=== PATIENT | female | born 1990 | race Caucasian/White ===

== ENCOUNTER 2019-03-19 17:07 | Emergency (ER) | payer OTHER ==
[~2019-03-19] VITALS: Ht 160 cm; Wt 54.4 kg
[2019-03-19] MEDS ORDERED: MIRENA1 EACH INTRAUTERI (17:28)
[2019-03-19 17:36] LABS: URINE BLOOD TRACE (Negative); URINE CLARITY CLOUDY; URINE COLOR YELLOW; URINE GLUCOSE-RANDOM NEGATIVE (Negative); URINE KETONES NEGATIVE (Negative); URINE LEUKOCYTES-REFLEX TRACE (Negative); URINE PROTEIN NEGATIVE (Negative); URINE SPECIFIC GRAVITY 1.025 (1.005-1.030); URINE UROBILINOGEN 0.2 E.U./dl (0.2-1.0)
[2019-03-19 17:40] LABS: ICTOTEST (BILI CONFIRMATORY) Negative (Negative); URINE BILIRUBIN 1+ (Negative); URINE NITRITE-REFLEX POSITIVE (Negative)
[2019-03-19 17:49] LABS: CASTS None Seen /LPF (None Seen); MUCUS 4-6 Moderate strn/LPF (None Seen); SQUAMOUS >10 Many /LPF (0-3)
[2019-03-19 17:50] LABS: BACTERIA-REFLEX >30 Many /HPF (None Seen); CALCIUM OXALATE 4-10 Moderate /LPF (None Seen); URINE RBC 0-2 Rare /HPF (0-2); URINE WBC-REFLEX 6-15 Few /HPF (0-5)
[2019-03-19 17:54] LABS: ABSOLUTE LYMPHOCYTES 1.3 thou/uL (0.8-5.3); ABSOLUTE MONOCYTES 0.5 thou/uL (0.0-1.2); ABSOLUTE NEUTROPHILS 4.6 thou/uL (1.6-8.1); BASOPHILS 0.3 %; EOSINOPHILS 0.7 %; HEMATOCRIT 41.9 % (37.0-47.0); HEMOGLOBIN 14.6 gm/dL (12.0-15.0); LYMPHOCYTES 20.1 %; MCH 31.6 pg (26.0-34.0); MCHC 34.8 g/dL (28.0-37.0); MCV 90.9 fL (80.0-100.0); MONOCYTES 7.3 %; MPV 6.7 fl. (7.2-11.1); NUCLEATED RBCS 0 /100WBC; PLATELET COUNT* 258 thou/uL (150-400); POLYS 71.6 %; RBC 4.62 mil/uL (4.20-5.00); RDW-CV 13.1 % (10.5-14.5); WBC 6.5 thou/uL (4.0-11.0)
[2019-03-19] MEDS ORDERED: MACROBID 100 M100 M2 PO (18:34)
[2019-03-19 18:52] VITALS: BP 133/74
== END 2019-03-19 18:55 | disposition home or self-care (01) ==
LOC: M.ERS 17:07
PROVIDERS: Nurse Practitioner Psychiatric/Mental Health
DX: N39.0 Urinary tract infection, site not specified (principal); F12.10 Cannabis abuse, uncomplicated; R19.7 Diarrhea, unspecified; R11.2 Nausea with vomiting, unspecified; Z88.0 Allergy status to penicillin; Z20.2 Contact with and (suspected) exposure to infections with a predominantly sexual mode of transmission; Z87.42 Personal history of other diseases of the female genital tract; Z87.442 Personal history of urinary calculi

== ENCOUNTER 2019-06-04 20:12 | Emergency (ER) | payer OTHER ==
[~2019-06-04] VITALS: Ht 160 cm; Wt 56.7 kg
[~2019-06-04 20:12] MED LIST: MACROBID 100 M100 M2 PO; MIRENA1 EACH INTRAUTERI
[2019-06-04 21:32] VITALS: BP 128/95
== END 2019-06-04 21:35 | disposition home or self-care (01) ==
LOC: M.ERS 20:12
DX: S00.83XA Contusion of other part of head, initial encounter (principal); S00.03XA Contusion of scalp, initial encounter; M79.642 Pain in left hand; Y04.0XXA Assault by unarmed brawl or fight, initial encounter; Y92.89 Other specified places as the place of occurrence of the external cause; Y93.89 Activity, other specified; Y99.8 Other external cause status

== ENCOUNTER 2019-12-21 15:28 | Emergency (ER) | payer OTHER ==
[~2019-12-21] VITALS: Ht 160 cm; Wt 54.4 kg
[2019-12-21] MEDS ORDERED: CLEOCIN HCL75 MG PO (15:36)
[2019-12-21] MEDS ORDERED: IBUPROFEN 800800 M1 PO (16:53)
[2019-12-21] MEDS ORDERED: FLEXERIL PO (16:53)
[2019-12-21 18:03] VITALS: BP 114/72
== END 2019-12-21 18:06 ==
LOC: M.ERS 15:28
DX: S09.90XA Unspecified injury of head, initial encounter (principal); S11.90XA Unspecified open wound of unspecified part of neck, initial encounter; S16.1XXA Strain of muscle, fascia and tendon at neck level, initial encounter; S20.212A Contusion of left front wall of thorax, initial encounter; Z87.442 Personal history of urinary calculi; Z88.0 Allergy status to penicillin; Y04.0XXA Assault by unarmed brawl or fight, initial encounter; Y93.9 Activity, unspecified; Y92.89 Other specified places as the place of occurrence of the external cause; Y99.8 Other external cause status

== ENCOUNTER 2020-03-15 21:44 | Emergency (ER) | payer OTHER ==
[~2020-03-15] VITALS: Ht 160 cm; Wt 54.4 kg
[~2020-03-15 21:44] MED LIST changes: +CLEOCIN HCL75 MG PO; +FLEXERIL PO; +IBUPROFEN 800800 M1 PO
[2020-03-16] MEDS ORDERED: CLINDAMYCIN HC150 MG PO (00:23)
[2020-03-16 00:59] VITALS: BP 98/80
== END 2020-03-16 00:59 | disposition home or self-care (01) ==
LOC: M.ERS 21:44
DX: L02.413 Cutaneous abscess of right upper limb (principal); F11.10 Opioid abuse, uncomplicated; Z87.442 Personal history of urinary calculi; Z88.0 Allergy status to penicillin

== ENCOUNTER 2020-10-16 09:24 | Emergency (ER) | payer OTHER ==
[~2020-10-16] VITALS: Ht 160 cm; Wt 54.4 kg
[~2020-10-16 09:24] MED LIST changes: +CLINDAMYCIN HC150 MG PO
[2020-10-16] MEDS ORDERED: BACTRIM DS TAB1 EAC1 PO (10:34)
[2020-10-16 10:44] VITALS: BP 139/65
== END 2020-10-16 10:45 | disposition home or self-care (01) ==
LOC: M.ERS 09:24
DX: L03.114 Cellulitis of left upper limb (principal); Z88.0 Allergy status to penicillin; Z87.442 Personal history of urinary calculi

== ENCOUNTER 2020-10-17 00:05 | Emergency (ER) | payer OTHER ==
[~2020-10-17] VITALS: Ht 160 cm; Wt 56.7 kg
[~2020-10-17 00:05] MED LIST changes: +BACTRIM DS TAB1 EAC1 PO
[2020-10-17 01:42] VITALS: BP 124/70
== END 2020-10-17 01:43 | disposition home or self-care (01) ==
LOC: M.ERS 00:05
DX: L03.113 Cellulitis of right upper limb (principal); L02.511 Cutaneous abscess of right hand; Z88.0 Allergy status to penicillin; Z87.442 Personal history of urinary calculi